=== PATIENT | female | born 1985 | race African-American/Black ===

== ENCOUNTER 2018-05-04 11:32 | Emergency (ER) | payer MEDICAID ==
[~2018-05-04] VITALS: Ht 167.6 cm; Wt 68.0 kg
[2018-05-04 11:47] VITALS: BP 116/72
[2018-05-04 12:26] LABS: APPEARANCE,URINE TURBID; BILIRUBIN, URINE 1+ (NEGATIVE); GLUCOSE, URINE (UA) NEGATIVE (NEGATIVE); KETONES,URINE 3+ (NEGATIVE); LEUKOCYTE ESTERASE ,URINE 2+ (NEGATIVE); NITRITE,URINE POSITIVE (NEGATIVE); PH,URINE 5 (4.5-8.0); PROTEIN,URINE 2+ (NEGATIVE); UROBILINOGEN,URINE 1 MG/DL (0.0-1.0)
[2018-05-04 12:31] LABS: COLOR,URINE YELLOW
--- NOTE | 2018-05-04 12:46 | Emergency Room Report ---
History of Present Illness General Chief Complaint: Abdominal Pain Source: Patient Present Illness HPI 32-year-old female presents to the emergency department complaining of 10/10 in severity progressive midline low abdominal pain that has been progressive over the course of 1 week in addition to constipation. Patient does not recall specifically if she has had fevers. Patient denies chills she reports that she is now beginning to have cramping in her lower back. She reports urinary frequency denies hematuria or urgency. Reports some dysuria. Patient also reports that she had recent unprotected intercourse and now has some discharge present. Denies dyspareunia/pelvic sensitivity. Denies history of PID. Patient denies . Patient reports nausea and decreased appetite she denies vomiting. Patient states last bowel movement was approximately 5 days ago. Patient denies genital lesions/rashes, swollen tender lymph nodes or joint pain. Allergies: Coded Allergies: No Known Allergies (Unverified , 05/04/18) Patient History Past Medical History: see triage record Past Surgical History: none Pertinent Family History: none Last Menstrual Period: 11-30 Now: No Immunizations: UTD Reviewed Nursing Documentation: PMH: Agreed; PSxH: Agreed Nursing Documentation-PMH Past Medical History: No Stated History Review of Systems All Other Systems: negative except mentioned in HPI Physical Exam Vital Signs Date Time Temp Pulse Resp B/P (MAP) Pulse Ox O2 Delivery O2 Flow Rate FiO2 05/04/18 11:47 99.5 96 18 116/72 97 Room Air Sp02 EP Interpretation: reviewed, normal General Appearance: alert, GCS 15, non-toxic, mild distress - tenderness and pain scale rating Head: normocephalic, atraumatic Eyes: bilateral eye normal inspection, bilateral eye PERRL ENT: hearing grossly normal, normal voice Neck: full range of motion Respiratory: lungs clear, normal breath sounds, speaking full sentences Cardiovascular #1: regular rate, rhythm Gastrointestinal: normal bowel sounds, soft, non-distended, no guarding, tenderness - generalized lower midline, no localized ttp, no adnexal or mac- carlos point ttp, no rebound pain. Rectal: deferred Genitourinary: normal inspection, no CVA tenderness, adnexa normal, deferred Musculoskeletal: back normal, gait/station normal, normal range of motion, non- tender Neurologic: alert, oriented x3, responsive, motor strength/tone normal, sensory intact, normal gait, speech normal, grossly normal Psychiatric: judgement/insight normal Skin: normal color, no rash, warm/dry, well hydrated Lymphatic: no adenopathy Medical Decision Making PA Attestation Dr. Meza is my supervising Physician whom patient management has been discussed with. Diagnostic Impression: Primary Impression: UTI (urinary tract infection) Qualified Codes: N30.01 - Acute cystitis with hematuria Additional Impression: Vaginal discharge ER Course 32-year-old female presents to the emergency department complaining of 10/10 in severity progressive midline low abdominal pain that has been progressive over the course of 1 week in addition to constipation. Patient does not recall specifically if she has had fevers. Patient denies chills she reports that she is now beginning to have cramping in her lower back. She reports urinary frequency denies hematuria or urgency. Reports some dysuria. Patient also reports that she had recent unprotected intercourse and now has some discharge present. Denies dyspareunia/pelvic sensitivity. Denies history of PID. Patient denies . Patient reports nausea and decreased appetite she denies vomiting. Patient states last bowel movement was approximately 5 days ago. Patient denies genital lesions/rashes, swollen tender lymph nodes or joint pain.. Ddx considered but are not limited to UTi , Pyelo, STI, Stone, Cystitis Vital signs: are WNL, pt. is afebrile H&PE are most consistent with possible UTI vs STI -- pt. non-toxic in appearance. ORDERS: - UA labs are attached -- very significant for infection, Nitrite positive, elevated leuks, and presence of bacteria. ED INTERVENTIONS: -Pyridium PO - Rocephin IM -Azithromycin 1g PO -D/w pt. moderate UTI is present. Treated for STI, however if symptoms persist consideration of PID and need for longer abx regimen may be indicated. 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 DISCHARGE: At this time pt. is stable for d/c to home. Will provide printed patient care instructions, and any necessary prescriptions. Care plan and follow up instructions have been discussed with the patient prior to discharge. Labs Test 05/04/18 11:55 Urine Color Yellow Urine Appearance Turbid Urine pH 5 (4.5-8.0) Urine Specific [place] 1.025 (1.005-1.035) Urine Protein 2+ (NEGATIVE) Urine Glucose (UA) Negative (NEGATIVE) Urine Ketones 3+ (NEGATIVE) Urine Blood 5+ (NEGATIVE) Urine Nitrite Positive (NEGATIVE) Urine Bilirubin 1+ (NEGATIVE) Urine Ictotest Negative (NEGATIVE) Urine Urobilinogen 1 MG/DL (0.0-1.0) Urine Leukocyte Esterase 2+ (NEGATIVE) Urine RBC 60-80 /HPF (0 - 2) Urine WBC 5-10 /HPF (0 - 2) Urine Squamous Epithelial Cells Moderate /LPF (NONE/OCC) Urine Bacteria Many /HPF (NONE) Urine Mucus Many /LPF (NONE/OCC) Urine HCG, Qualitative Negative (NEGATIVE) Last Vital Signs Date Time Temp Pulse Resp B/P (MAP) Pulse Ox O2 Delivery O2 Flow Rate FiO2 05/04/18 11:47 96 18 Room Air 05/04/18 11:47 99.5 116/72 97 Disposition: HOME, SELF-CARE Condition: Stable Scripts Phenazopyridine Hcl* (PYRIDIUM*) 200 Mg Tablet 200 MG ORAL THREE TIMES A DAY for 3 Days, #9 TAB 0 Refills Prov: Anel Lord 05/04/18 Trimethoprim/Sulfamethoxazole 160/800* (BACTRIM DS TABLET*) 1 Each Tablet 1 TAB ORAL TWICE A DAY for 7 Days, #14 TAB Prov: Anel Lord 05/04/18 Departure Forms: Return to Work Return to Work Date: May 08, 2018 Work Restrictions: None Return to Full Activity: May 08, 2018 Patient Instructions: Abdominal Pain, Adult, Urinary Tract Infection, Easy-to- Read Additional Instructions: Take medications as directed. Pyridium will cause your urine to change color (Red/Randolph), this is a normal side effect of the medication. Follow up with a Primary Care Provider in 3-5 days, even if your symptoms have resolved. --Please review list of primary care clinics, if you do not already have a primary care provider Return sooner to ED if new symptoms occur, or current symptoms become worse. - Please note that this Emergency Department Report was dictated using [employer] software, occasionally this can lead to erroneous entry secondary to interpretation by the dictation equipment. Anel Lord May 04, 2018 12:46
[2018-05-04] MEDS ORDERED: Phenazopyridine 200mg tab ORAL ONE (13:00)
[2018-05-04] MEDS ORDERED: Azithromycin 250mg tab ORAL ONE (13:00)
[2018-05-04] MEDS ORDERED: Lidocaine 1% MPF 10mg/ml 5ml INJ ONE (13:00)
[2018-05-04] MEDS ORDERED: BACTRIM DS TAB1 EAC1 ORAL (13:05)
[2018-05-04] MEDS ORDERED: PHENAZOPYRIDIN200 MG ORAL (13:05)
[2018-05-04 14:03] VITALS: BP 130/65
== END 2018-05-04 13:45 | disposition home or self-care (01) ==
LOC: EMR 13:42
DX: N39.0 Urinary tract infection, site not specified (principal); N89.8 Other specified noninflammatory disorders of vagina
CPT/HCPCS: 81003; 81025; 87086; 96372; 96374; 99284; J0696; Q0144